=== PATIENT | male | born 2005 | race Caucasian/White ===

== ENCOUNTER 2024-07-09 16:50 | Emergency (ER) | payer BC, SELFPAY ==
[2024-07-09 16:59] VITALS: BP 126/86
--- NOTE | 2024-07-09 18:25 | ED.GENMED ---
History of Present Illness
General
Chief Complaint: Abdominal Symptoms
Source: patient
Exam Limitations: none
Time Seen by Provider: 07/09/24 18:02
Nursing documentation reviewed up to this point in time: agreed with
History of Present Illness
History of Present Illness:
18-year-old male past medical history of asthma presenting to the emergency department today with concerns of nausea and vomiting over the past 3 days intermittent nausea intermittent vomiting some mild upper abdominal crampy discomfort as well as a
headache no no diarrhea no abdominal pain no fevers. Able to drink some today.
Review of Systems
Review of Systems
Allergies reviewed?: Yes
All Other Systems: ROS reviewed and negative except as documented in HPI and ROS
Phy Exam
Physical Exam
Physical Exam:
GENERAL: Alert , in no apparent distress
EYE: pupils equal and reactive
NECK: Supple, no significant adenopathy.
ENT: o/p clr, mmm.
CARDIAC: Regular rate and rhythm .
LUNGS: Clear breath sounds bilaterally, no acute respiratory distress, no wheezes/rales/rhonchi
ABDOMEN: Soft, without focal tenderness, no r/g, no cvat
NEUROLOGICAL: Alert and oriented, no focal neuro deficits
SKIN: Warm and dry, skin intact.
MUSCULOSKELETAL: No edema, well perfused.
PSYCH: Normal and appropriate interaction.
Course
Orders/Labs/Results
Orders:
Orders
07/09/24 18:17
0.9% Sodium Chloride 1000 ml [Nss] 1,000 ml IV BOLUS
Famotidine [Pepcid] 20 mg IV NOW STA
Ondansetron Injectable [Zofran] 4 mg IV NOW STA
07/09/24 18:34
Complete Blood Count/With Diff Urgent
Comprehensive Metabolic Panel Urgent
Lipase Urgent
Abnormal Lab Results
07/09/24
18:34
Absolute Monos (auto) 0.9 H 10^3/uL
(0.1-0.6)
Lymphocytes % 14.6 L %
(20.5-51.1)
Monocytes % 11.0 H %
(1.7-9.3)
Creatinine 1.4 H mg/dL
(0.7-1.3)
Calcium 10.6 H mg/dl
(8.4-10.2)
07/09/24 18:34
07/09/24 18:34
Vital Signs
Initial and Last Documented VS:
Initial Vital Signs
Temp Pulse Resp BP Pulse Ox
98.1 F 87 16 126/86 100
07/09/24 16:59 07/09/24 16:59 07/09/24 16:59 07/09/24 16:59 07/09/24 16:59
Last Documented Vital Signs
Temp Pulse Resp BP Pulse Ox
98.1 F 87 16 126/86 100
07/09/24 16:59 07/09/24 16:59 07/09/24 16:59 07/09/24 16:59 07/09/24 16:59
MDM/Problems Addressed
MDM/Problems Addressed:
18-year-old male presenting to the emergency department with nausea and vomiting over the past 3 days somewhat intermittent but some ongoing nausea today. Also mild headache. Denies any chest pain shortness of breath or fevers. No diarrhea. Here
has a soft benign abdomen generally well-appearing normal vital signs on arrival. Labs without emergent finding slightly elevated creatinine level 1.4. Patient feeling much better after medications here. Stable for outpatient management no
evidence of surgical pathology abdomen reassessed here with no reproducible pain to the belly. Advised for close primary care follow-up return precautions given.
*Critical Care Note
Total Time (30-74mins, 75-104mins- exclusive of procedures): Not Applicable
ED Attending Note
-
Portions of this chart may have been created with voice recognition software.� Occasional wrong word or��sound alike� substitutions may have occurred due to the inherent limitations of voice recognition software.
Discharge Plan
Departure
Patient Disposition: Home (Routine Discharge)
Date of Disposition: 07/09/24
Time of Disposition: 20:59
Patient with high blood pressure during this ER visit?: No
Condition: Good
Covid-19: Not Applicable
Discharge Problem:
Nausea, Abdominal pain
Instructions: Abdominal Pain
Prescriptions:
New
ondansetron 4 mg tablet,disintegrating
4 mg PO Q8H PRN (Reason: nausea and vomiting) Qty: 10 0RF
Referrals:
NONE,* [Family Provider] -
Activity Restrictions/Additional Instructions:
You came to the emergency department today with concerns of GI symptoms. Here had a reassuring assessment. Please slowly progress diet over the next few days and follow-up closely with the primary care doctor. Return to the emergency department
for any worsening, new or concerning symptoms.
Interventions
Interventions:
*Risk Screen - Suicide Last Done: 07/09/24 18:46
*General Assessment Last Done: 07/09/24 18:46
*Neglect/Abuse Screening Last Done: 07/09/24 18:46
NE-Hkbyyp-Enmyjndjpl Assessment Last Done: 07/09/24 18:46
Discharge Date and Time
Print Language: HUNGARIAN
[2024-07-09] MEDS: ZOFRAN 4 MG IV (18:40)
[2024-07-09] MEDS: PEPCID 20 MG IV (18:40)
[2024-07-09] MEDS: NSS 1000 IV (18:40)
[2024-07-09 18:44] LABS: % Basophils 0.4 % (0-2); % Eosinophils 0.3 % (0-6); % Immature Granulocytes 0.3 % (0-0.5); % Lymphocytes 14.6 % (20.5-51.1); % Neutrophils 73.4 % (42.2-75.2); Absolute Lymphocytes 1.2 10^3/uL (1.2-3.4); Absolute Monocytes 0.9 10^3/uL (0.1-0.6); Absolute Neutrophils 5.8 10^3/uL (1.4-6.5); Hematocrit 42.4 % (39.0-52.0); Hemoglobin 15.2 g/dL (13.0-18.0); Mean Corp Hgb Conc. 35.8 g/dL (33.0-37.0); Mean Corpuscular Hgb 29.7 pg (27.0-31.0); Mean Platelet Volume 9.5 fL (7.4-10.4); Nucleated Red Blood Cells % 0 % (-); Platelet Count 260 10^3/uL (130-400); Red Blood Cell Count 5.11 10^6/uL (4.70-6.10); Red Cell Dist. Width 11.9 % (11.5-14.5); White Blood Cell Count 7.9 10^3/uL (4.8-10.8)
[2024-07-09 19:08] LABS: ALT (SGPT) 16 U/L (0-50); AST (SGOT) 27 U/L (17-59); Alkaline Phosphatase 89 U/L (38-126); Blood Urea Nitrogen 17 mg/dl (9-20); Calcium 10.6 mg/dl (8.4-10.2); Carbon Dioxide 24 mmol/L (22-30); Chloride 103 mmol/L (98-107); Glucose 97 mg/dl (70-99); Lipase 67 U/L (23-300); Potassium 3.9 mmol/L (3.5-5.1); Sodium 142 mmol/L (135-145); Total Bilirubin 1.2 mg/dl (0.2-1.3); Total Protein 7.4 g/dl (6.3-8.2); eGFR > 60.00
[2024-07-09 21:22] VITALS: BP 123/66
== END 2024-07-09 21:10 | disposition home or self-care (01) ==
LOC: EMR 16:50
PROVIDERS: Physician Assistant; EMERGENCY PHYSICIAN Student in an Organized Health Care Education/Training Program
DX: R11.0 Nausea (principal); R10.9 Unspecified abdominal pain
CPT/HCPCS: 99283; 96374; 96375; 96361; 80053; 83690; 85025